=== PATIENT | male | born 1970 | race Caucasian/White ===

== ENCOUNTER 2017-02-15 22:08 | Emergency (ER) | payer MEDICAID ==
[~2017-02-15] VITALS: Ht 172.7 cm; Wt 98.0 kg
[2017-02-15] MEDS ORDERED: CefTRIAXone SODIUM 1 GM/VIAL IM ONE (23:30)
[2017-02-15] MEDS ORDERED: LIDOCAINE HCL/PF 1% 2 ML VIAL IM ONE (23:30)
[2017-02-15 23:54] VITALS: BP 144/88
== END 2017-02-15 23:56 | disposition home or self-care (01) ==
LOC: EMS 22:09
DX: K02.9 Dental caries, unspecified (principal); F17.210 Nicotine dependence, cigarettes, uncomplicated
CPT/HCPCS: 99281; 99283; J0696; J3490